=== PATIENT | female | born 2000 | race Caucasian/White ===

== ENCOUNTER 2021-07-17 16:46 | Emergency (ER) | payer OTHER, MEDICAID ==
[~2021-07-17] VITALS: Ht 162.6 cm; Wt 104.3 kg
[2021-07-17] MEDS ORDERED: LORATIDINE 10 M10 M1 PO (17:18)
[2021-07-17] MEDS ORDERED: FLUOXETINE HCL40 MG PO (17:18)
[2021-07-17] MEDS ORDERED: OLANZAPINE15 M1 PO (17:19)
[2021-07-17] MEDS ORDERED: OXCARBAZEPINE600 MG PO (17:19)
[2021-07-17] MEDS ORDERED: OLANZAPINE10 M1 PO (17:19)
[2021-07-17] MEDS ORDERED: ACTICIN 5% CREA60 G1 TOP (17:20)
[2021-07-17] MEDS ORDERED: TOPAMAX100 MG PO (17:20)
[2021-07-17] MEDS ORDERED: OXTELLAR XR300 MG PO (17:20)
[2021-07-17 18:15] LABS: ABSOLUTE BASOPHILS 0.1 thou/uL (0.0-0.2); ABSOLUTE EOSINOPHILS 0.3 thou/uL (0.0-0.7); ABSOLUTE LYMPHOCYTES 1.8 thou/uL (0.8-5.3); ABSOLUTE MONOCYTES 0.3 thou/uL (0.0-1.2); ABSOLUTE NEUTROPHILS 4.6 thou/uL (1.6-8.1); BASOPHILS 0.7 %; EOSINOPHILS 3.7 %; HEMATOCRIT 38.6 % (37.0-47.0); HEMOGLOBIN 12.9 gm/dL (12.0-15.0); MCH 30.1 pg (26.0-34.0); MCHC 33.6 g/dL (28.0-37.0); MCV 89.6 fL (80.0-100.0); MONOCYTES 4.6 %; MPV 7.5 fl. (7.2-11.1); NUCLEATED RBCS 0 /100WBC; PLATELET COUNT* 287 thou/uL (150-400); RDW-CV 13.4 % (10.5-14.5); WBC 7.1 thou/uL (4.0-11.0)
[2021-07-17 18:21] LABS: CALCIUM 8.5 mg/dL (8.5-10.1); CREATININE 0.8 mg/dL (0.6-1.3); POTASSIUM 3.6 mmol/L (3.5-5.1)
[2021-07-17 18:45] LABS: SALICYLATE < 2.8 mg/dL (2.8-20.0)
[2021-07-17 18:46] LABS: ACETAMINOPHEN < 2 ug/mL (10-30); ALCOHOL < 10 mg/dL (<10)
[2021-07-17 19:05] VITALS: BP 127/79
== END 2021-07-17 19:05 | disposition home or self-care (01) ==
LOC: M.ERS 16:46
PROVIDERS: Emergency Medicine
DX: F84.0 Autistic disorder (principal); F20.9 Schizophrenia, unspecified; Z79.899 Other long term (current) drug therapy; Z91.048 Other nonmedicinal substance allergy status